=== PATIENT | male | born 1960 | race Two or more races ===

== ENCOUNTER 2017-05-14 14:14 | Emergency (ER) | payer OTHER ==
[~2017-05-14] VITALS: Ht 177.8 cm; Wt 109.0 kg
[2017-05-14] MEDS ORDERED: BENA40TA3 PO (14:27)
[2017-05-14] MEDS ORDERED: METF850T2 PO (14:27)
[2017-05-14 22:50] VITALS: BP 117/87
== END 2017-05-14 22:54 | disposition home or self-care (01) ==
LOC: ER 14:14
DX: K09.0 Developmental odontogenic cysts (principal); E11.9 Type 2 diabetes mellitus without complications; I10 Essential (primary) hypertension; Z87.891 Personal history of nicotine dependence
CPT/HCPCS: 70486; 99284

== ENCOUNTER 2019-10-20 15:16 | Emergency (ER) | payer OTHER ==
[~2019-10-20] VITALS: Ht 180.3 cm; Wt 109.1 kg
[~2019-10-20 15:16] MED LIST: BENA40TA9 PO; METF-415 PO
[2019-10-20] MEDS ORDERED: ALBUTEROL 6.7GM HFA INHALER ORI ONE (15:45)
[2019-10-20] MEDS ORDERED: PREDNISONE 20MG TABLET PO ONE (15:45)
[2019-10-20 16:58] VITALS: BP 145/82
== END 2019-10-20 16:59 | disposition home or self-care (01) ==
LOC: ER 15:16
DX: R05 Cough (principal); I10 Essential (primary) hypertension; E11.9 Type 2 diabetes mellitus without complications; Z79.84 Long term (current) use of oral hypoglycemic drugs
CPT/HCPCS: 71045; 99283; J7512; Z7610